=== PATIENT | male | born 1960 | race Caucasian/White ===

== ENCOUNTER 2024-10-06 07:05 | Day surgery (SDC) | payer BC, MEDICARE ==
[~2024-10-06 07:05] MED LIST: Acetaminophen 325 MG Tab PO PRN; Acetaminophen/Codeine 300-30 MG Tab PO ONE; Ondansetron 4 MG/2 ML SDV IVPUSH ONE; Promethazine 25 MG Supp RECTAL PRN
[2024-10-06] MEDS ORDERED: Midazolam 1 MG/ML 2 ML SDV IV ONE (07:06)
[2024-10-06] MEDS ORDERED: Dexamethasone 4 MG/ML SDV IV ONE (07:06)
[2024-10-06] MEDS ORDERED: Sodium Chloride 0.9% 10 ML Syringe IV ONE (07:06)
[2024-10-06] MEDS ORDERED: Lidocaine 1% 30 ML SDV INJECT ONE (09:00)
[2024-10-06] MEDS ORDERED: VANCOmycin 500 MG SDV EYELF ONE (09:00)
[2024-10-06] MEDS: Proparacaine 0.5% Ophth Soln 15 ML Bottle EYELF ONE ×2 (09:07→10:33)
[2024-10-06] MEDS: Povidone-Iodine 5% Sterile Ophth Soln 30 ML Bottle EYELF ONE ×2 (09:09→10:34)
[2024-10-06] MEDS: Timolol Maleate 0.5% Ophth Soln 5 ML Bottle EYELF ONE (09:11)
[2024-10-06] MEDS: Tropicamide 1% Ophth Soln 15 ML Bottle EYELF ONE (09:12)
[2024-10-06] MEDS: Phenylephrine 10% Ophth Soln 5 ML Bot EYELF ONE (09:13)
[2024-10-06] MEDS: Moxifloxacin 0.5% Ophth Soln 3 ML Bottle EYELF ONE (09:14)
[2024-10-06] MEDS: Cataract Ophth Solution EYELF ONE (09:16)
[2024-10-06] MEDS: Apraclonidine 0.5% Ophth Soln 5 ML Bot EYELF ONE (10:34)
[2024-10-06] MEDS: Dexamethasone/Neomycin/Polymyxin B Ophth Oint 3.5 GM Tube EYELF ONE (10:35)
[2024-10-06] MEDS: Diclofenac Sodium 0.1% Ophth Soln 5 ML Bottle EYELF ONE (10:35)
[2024-10-06] MEDS: Lidocaine 1% 30 ML SDV INJECT ONE (10:36)
[2024-10-06] MEDS: VANCOmycin 500 MG SDV EYELF ONE (10:36)
== END 2024-10-06 11:18 | disposition home or self-care (01) ==
LOC: DL.SDS 07:05
PROVIDERS: ATTEND Ophthalmology
DX: E11.36 Type 2 diabetes mellitus with diabetic cataract (principal); H25.812 Combined forms of age-related cataract, left eye; E78.5 Hyperlipidemia, unspecified; I10 Essential (primary) hypertension; I63.9 Cerebral infarction, unspecified; F17.200 Nicotine dependence, unspecified, uncomplicated; Z79.4 Long term (current) use of insulin; Z79.82 Long term (current) use of aspirin; Z79.899 Other long term (current) drug therapy
CPT/HCPCS: 66984; 82947; A9270; J2003; J3370; 00142; J1100; J2250; J3490

== ENCOUNTER 2024-10-20 09:37 | Day surgery (SDC) | payer MEDICARE ==
[2024-10-20] MEDS ORDERED: Sodium Chloride 0.9% 10 ML Syringe IV ONE (09:38)
[2024-10-20] MEDS ORDERED: Dexamethasone 4 MG/ML SDV IV ONE (09:38)
[2024-10-20] MEDS ORDERED: Midazolam 1 MG/ML 2 ML SDV IV ONE (09:38)
[2024-10-20] MEDS ORDERED: hydrALAZINE 20 MG/ML SDV ONE (09:40)
[2024-10-20] MEDS: Proparacaine 0.5% Ophth Soln 15 ML Bottle EYERT ONE ×2 (10:13→10:52)
[2024-10-20] MEDS: Moxifloxacin 0.5% Ophth Soln 3 ML Bottle EYERT ONE (10:14)
[2024-10-20] MEDS: Povidone-Iodine 5% Sterile Ophth Soln 30 ML Bottle EYERT ONE ×2 (10:14→10:52)
[2024-10-20] MEDS: Tropicamide 1% Ophth Soln 15 ML Bottle EYERT ONE (10:17)
[2024-10-20] MEDS: Phenylephrine 10% Ophth Soln 5 ML Bot EYERT PRN (10:17)
[2024-10-20] MEDS: Timolol Maleate 0.5% Ophth Soln 5 ML Bottle EYERT ONE (10:18)
[2024-10-20] MEDS: Cataract Ophth Solution EYERT ONE (10:18)
[2024-10-20] MEDS: Dexamethasone/Neomycin/Polymyxin B Ophth Oint 3.5 GM Tube EYERT ONE (10:54)
[2024-10-20] MEDS: Diclofenac Sodium 0.1% Ophth Soln 5 ML Bottle EYERT ONE (10:54)
[2024-10-20] MEDS: Apraclonidine 0.5% Ophth Soln 5 ML Bot EYERT ONE (10:54)
[2024-10-20] MEDS: VANCOmycin 500 MG SDV EYERT ONE (10:58)
[2024-10-20] MEDS: Lidocaine 1% 30 ML SDV ONE (10:58)
[2024-10-20] MEDS ORDERED: Lidocaine 1% 30 ML SDV INJECT ONE (11:00)
[2024-10-20] MEDS ORDERED: Ondansetron 4 MG/2 ML SDV IVPUSH PRN (11:00)
[2024-10-20] MEDS ORDERED: Acetaminophen/Codeine 300-30 MG Tab PO PRN (11:00)
[2024-10-20] MEDS ORDERED: VANCOmycin 500 MG SDV EYERT ONE (11:00)
[2024-10-20] MEDS ORDERED: Acetaminophen 325 MG Tab PO PRN (11:00)
== END 2024-10-20 11:45 | disposition home or self-care (01) ==
LOC: DL.SDS 09:37
PROVIDERS: ATTEND Ophthalmology
DX: E11.36 Type 2 diabetes mellitus with diabetic cataract (principal); H25.811 Combined forms of age-related cataract, right eye; I10 Essential (primary) hypertension; E11.51 Type 2 diabetes mellitus with diabetic peripheral angiopathy without gangrene; E78.5 Hyperlipidemia, unspecified
CPT/HCPCS: 66984; A9270; J2003; J3370; J1100; J2250; J3490